=== PATIENT | female | born 1995 | race Caucasian/White ===

== ENCOUNTER → 2023-04-09 | Outpatient (CLI) | payer OTHER ==
[2023-04-09 10:16] LABS: BASOPHILS ABSOLUTE AUTO 0.02 K/mm3 (0.00-0.23); BASOPHILS PERCENT AUTO 0 % (0-2); EOSINOPHILS ABSOLUTE AUTO 0.06 K/mm3 (0.00-0.68); EOSINOPHILS PERCENT AUTO 1 % (0-6); Hematocrit 42.9 % (33.0-51.0); Hemoglobin 14.5 g/dL (11.5-16.0); IMMATURE GRAN ABSOLUTE AUTO 0.01 K/mm3 (0.00-0.10); IMMATURE GRAN PERCENT AUTO 0 % (0-1); LYMPHOCYTES ABSOLUTE AUTO 2.02 K/mm3 (0.84-5.20); LYMPHOCYTES PERCENT AUTO 43 % (21-46); MONOCYTES ABSOLUTE AUTO 0.32 K/mm3 (0.16-1.47); MONOCYTES PERCENT AUTO 7 % (4-13); Mean Corpuscular HGB 30.6 pg (26.0-34.0); Mean Corpuscular HGB Conc 33.8 g/dL (31.5-36.5); Mean Corpuscular Volume 91 fL (80-100); Mean Platelet Volume 9.7 fL (9.1-12.4); NEUTROPHILS PERCENT AUTO 49 % (41-73); Platelet Count 340 K/mm3 (150-400); RDW Coefficient Variation 11.9 % (11.7-14.2); RDW Standard Deviation 39.5 fL (35.1-46.3); Red Blood Cell Count 4.74 M/mm3 (3.80-5.20); White Blood Cell Count 4.73 K/mm3 (4.00-11.30)
[2023-04-09 10:27] LABS: Albumin, Blood 4.2 g/dL (3.4-5.0); Albumin/Globulin Ratio 1.1 (0.8-1.8); Bilirubin, Total 0.4 mg/dL (0.1-1.0); Bun/Creatinine Ratio 18.7 (12.0-20.0); Calcium, Blood 9.2 mg/dL (8.5-10.1); Creatinine, Blood 0.75 mg/dL (0.40-1.00); Globulin, Blood 3.8 g/dL (2.2-4.0); Potassium, Blood 3.8 mmol/L (3.5-5.5)
== END ==
LOC: LAB 10:13 → LAB SHORT 10:13
PROVIDERS: Family Medicine
DX: R42 Dizziness and giddiness (principal)
CPT/HCPCS: 80053; 85025

== ENCOUNTER → 2023-04-25 | Outpatient (CLI) | payer OTHER | END | disposition home or self-care (01) | LOC: LAB SHORT 17:06 | DX: Z32.01 Encounter for pregnancy test, result positive (principal) | CPT/HCPCS: 84702 ==

== ENCOUNTER → 2023-06-19 | Outpatient (CLI) | payer OTHER ==
[~2023-06-19] MED LIST: ONDA4ODT MM; PRENATAL 19 TA1 EAC3 PO
== END | disposition home or self-care (01) ==
LOC: LAB SHORT 17:20 → LAB 17:20
DX: L08.9 Local infection of the skin and subcutaneous tissue, unspecified (principal)
CPT/HCPCS: 87070; 87077; 87147; 87186; 87205

== ENCOUNTER → 2023-10-12 | Outpatient (CLI) | payer OTHER ==
[2023-10-18 08:14] LABS: OVA AND PARASITE,FECAL INTERP Negative (Negative)
== END | disposition home or self-care (01) ==
LOC: LAB SHORT 12:19 → LAB 12:19
PROVIDERS: Registered Nurse Community Health
DX: R19.7 Diarrhea, unspecified (principal)
CPT/HCPCS: 87177; 87209

== ENCOUNTER → 2023-10-23 | Outpatient (CLI) | payer OTHER | END | disposition home or self-care (01) | LOC: LAB SHORT 11:50 → LAB 11:50 | DX: Z09 Encounter for follow-up examination after completed treatment for conditions other than malignant neoplasm (principal); Z86.14 Personal history of Methicillin resistant Staphylococcus aureus infection | CPT/HCPCS: 87081 ==

== ENCOUNTER → 2023-12-05 | Outpatient (CLI) | payer OTHER | LOC: LAB SHORT 12:56 → LAB 12:56 | DX: Z34.93 Encounter for supervision of normal pregnancy, unspecified, third trimester (principal) | CPT/HCPCS: 87081; 87150 ==

== ENCOUNTER → 2023-12-13 | Outpatient (CLI) | payer OTHER | LOC: LAB 13:47 → LAB SHORT 13:47 | PROVIDERS: Registered Nurse Community Health | DX: O24.419 Gestational diabetes mellitus in pregnancy, unspecified control (principal) | CPT/HCPCS: 81050; 84156 ==

== ENCOUNTER 2023-12-19 00:52 | Inpatient (IN) | payer OTHER ==
[~2023-12-19] VITALS: Ht 175.3 cm; Wt 98.6 kg
[2023-12-19] VITALS (20 sets, daily range): BP systolic 94–140; BP diastolic 52–88
[2023-12-19] MEDS ORDERED: FentaNYL Citrate 50 MCG/ML 2 ML Injection IV PRN (02:05)
[2023-12-19] MEDS ORDERED: Lactated Ringer's 1,000 ML IV ONE ×2 (02:05→19:15)
[2023-12-19] MEDS ORDERED: Ondansetron HCl 2 MG / ML 2ML Vial ONE ×2 (02:29→10:18)
[2023-12-19] MEDS ORDERED: Ondansetron HCl 2 MG / ML 2ML Vial IV PRN ×2 (02:30→19:15)
[2023-12-19] MEDS ORDERED: Promethazine HCl 25 MG Tab PO ONE ×2 (04:35→12:25)
[2023-12-19] MEDS ORDERED: Morphine Sulfate 10 MG/ML 1MLSYR IM ONE ×2 (04:35→12:25)
[2023-12-19] MEDS ORDERED: METO5A PO (04:54)
[2023-12-19] MEDS ORDERED: METF500C PO (04:55)
[2023-12-19] MEDS ORDERED: Ondansetron HCl 2 MG / ML 2ML Vial IV ONE (07:15)
[2023-12-19] MEDS ORDERED: CefTRIAXone Sodium 2,000 MG in NS 100 ML IV ONE (09:55)
[2023-12-19 09:59] LABS: Source, Urine Voided
[2023-12-19 10:04] LABS: Appearance, Urine Clear (Clear); Bilirubin, Urine Neg (Neg); Blood, Urine 1+ (Neg); Glucose Qualitative, Urine 1+ (Neg); Ketones, Urine 4+ (Neg); Leukocyte Esterase, Urine 2+ (Neg); Nitrite, Urine Neg (Neg); Protein, Urine Neg (Neg); Specific Gravity, Urine 1.015 (1.003-1.022); Urobilinogen, Urine NORM (Normal)
[2023-12-19 11:43] LABS: Color, Urine Yellow (P-Yellow)
[2023-12-19 11:44] LABS: Bacteria Few /hpf; Red Blood Cells, Urine 0-2 /hpf (0-2); Squamous Epithelial Cells Few /hpf (Few)
[2023-12-19] MEDS ORDERED: Pantoprazole Sodium 40 MG Injection IV ONE (12:15)
[2023-12-19] MEDS ORDERED: NIFEdipine 10 MG Cap PO ONE (12:25)
[2023-12-19 13:28] LABS: BASOPHILS ABSOLUTE AUTO 0.02 K/mm3 (0.00-0.23); BASOPHILS PERCENT AUTO 0 % (0-2); EOSINOPHILS ABSOLUTE AUTO 0.01 K/mm3 (0.00-0.68); EOSINOPHILS PERCENT AUTO 0 % (0-6); Hemoglobin 12.7 g/dL (11.5-16.0); IMMATURE GRAN ABSOLUTE AUTO 0.05 K/mm3 (0.00-0.10); IMMATURE GRAN PERCENT AUTO 0 % (0-1); LYMPHOCYTES ABSOLUTE AUTO 1.37 K/mm3 (0.84-5.20); LYMPHOCYTES PERCENT AUTO 10 % (21-46); MONOCYTES ABSOLUTE AUTO 0.74 K/mm3 (0.16-1.47); MONOCYTES PERCENT AUTO 5 % (4-13); Mean Corpuscular HGB Conc 34.3 g/dL (31.5-36.5); Mean Corpuscular Volume 90 fL (80-100); Mean Platelet Volume 10.6 fL (9.1-12.4); NEUTROPHILS ABSOLUTE AUTO 12.25 K/mm3 (1.96-9.15); NEUTROPHILS PERCENT AUTO 85 % (41-73); Platelet Count 307 K/mm3 (150-400); RDW Coefficient Variation 14.5 % (11.7-14.2); RDW Standard Deviation 48.2 fL (35.1-46.3); White Blood Cell Count 14.44 K/mm3 (4.00-11.30)
[2023-12-19 13:45] LABS: Albumin, Blood 2.9 g/dL (3.4-5.0); Albumin/Globulin Ratio 0.7 (0.8-1.8); Bilirubin, Total 0.4 mg/dL (0.1-1.0); Bun/Creatinine Ratio 12.5 (12.0-20.0); Creatinine, Blood 0.4 mg/dL (0.40-1.00); Globulin, Blood 4.1 g/dL (2.2-4.0); Potassium, Blood 3.8 mmol/L (3.5-5.5)
[2023-12-19] MEDS ORDERED: Methylergonovine Maleate 0.2MG / ML 1ML Amp IM PRN (19:15)
[2023-12-19] MEDS ORDERED: Misoprostol 200 MCG Tab PR PRN (19:15)
[2023-12-19] MEDS ORDERED: Calcium Carbonate 500 MG Tab Chew PO PRN (19:15)
[2023-12-19] MEDS ORDERED: ePHEDrine Sulfate 50 MG/ML 1ML Injection XX PRN (19:15)
[2023-12-19] MEDS ORDERED: OXYTOCIN/RINGER'S LACTATE 500 ML IV PRN (19:15)
[2023-12-19] MEDS ORDERED: Oxytocin 10 Unit / ML Vial IM PRN (19:15)
[2023-12-19] MEDS ORDERED: Carboprost Tromethamine 250 MCG/ML 1ML Amp IM PRN (19:15)
[2023-12-19] MEDS ORDERED: Acetaminophen 500 MG Tab PO PRN (19:15)
[2023-12-19] MEDS ORDERED: Misoprostol 200 MCG Tab BC PRN (19:15)
[2023-12-19] MEDS ORDERED: Lactated Ringer's 1,000 ML IV SCH (19:15)
[2023-12-19] MEDS ORDERED: Lactated Ringer's 1,000 ML IV PRN ×2 (19:15)
[2023-12-19] MEDS ORDERED: FentaNYL 2mcg/ml-Bup 0.1% Epd 250 ML EPI PRN (19:15)
[2023-12-19] MEDS ORDERED: Tranexamic Acid 100 ML IV PRN (19:25)
[2023-12-20] VITALS (21 sets, daily range): BP systolic 110–164; BP diastolic 54–81
[2023-12-20] MEDS ORDERED: OXYTOCIN/RINGER'S LACTATE 500 ML IV SCH (05:35)
[2023-12-20] MEDS ORDERED: Pantoprazole Sodium 40 MG Injection IV SCH (08:40)
[2023-12-20] MEDS ORDERED: D5W-LR 1,000 ML IV SCH (09:00)
[2023-12-20] MEDS ORDERED: Witch Hazel/Glycerin PADS TOP PRN (17:15)
[2023-12-20] MEDS ORDERED: FLU VACC TS2024-25(6MOS UP)/PF 45 MCG/0.5 ML SYRINGE IM PRN (17:15)
[2023-12-20] MEDS ORDERED: Ketorolac Tromethamine 30mg Vial IV PRN (17:15)
[2023-12-20] MEDS ORDERED: Ibuprofen 400 MG Tab PO PRN (17:15)
[2023-12-20] MEDS ORDERED: Lactated Ringer's 1,000 ML IV SCH (17:15)
[2023-12-20] MEDS ORDERED: Benzocaine Topical Anesthetic Spray 60GM TOP PRN (17:20)
[2023-12-20] MEDS ORDERED: Docusate Sodium 100 MG Cap PO PRN (17:20)
[2023-12-20] MEDS ORDERED: Acetaminophen 325 MG TABLET PO PRN (17:20)
[2023-12-20] MEDS ORDERED: Lanolin Cream TOP PRN (17:20)
[2023-12-21] VITALS: BP 120/62
[2023-12-21 03:56] VITALS: BP 115/62
[2023-12-21 05:46] LABS: BASOPHILS ABSOLUTE AUTO 0.02 K/mm3 (0.00-0.23); BASOPHILS PERCENT AUTO 0 % (0-2); EOSINOPHILS ABSOLUTE AUTO 0.02 K/mm3 (0.00-0.68); EOSINOPHILS PERCENT AUTO 0 % (0-6); Hematocrit 32.5 % (33.0-51.0); Hemoglobin 10.9 g/dL (11.5-16.0); IMMATURE GRAN ABSOLUTE AUTO 0.05 K/mm3 (0.00-0.10); IMMATURE GRAN PERCENT AUTO 1 % (0-1); LYMPHOCYTES ABSOLUTE AUTO 2.22 K/mm3 (0.84-5.20); LYMPHOCYTES PERCENT AUTO 20 % (21-46); MONOCYTES ABSOLUTE AUTO 0.94 K/mm3 (0.16-1.47); MONOCYTES PERCENT AUTO 9 % (4-13); Mean Corpuscular HGB 30.8 pg (26.0-34.0); Mean Corpuscular HGB Conc 33.5 g/dL (31.5-36.5); Mean Corpuscular Volume 92 fL (80-100); Mean Platelet Volume 10.4 fL (9.1-12.4); NEUTROPHILS ABSOLUTE AUTO 7.84 K/mm3 (1.96-9.15); NEUTROPHILS PERCENT AUTO 71 % (41-73); Platelet Count 284 K/mm3 (150-400); RDW Coefficient Variation 14.7 % (11.7-14.2); RDW Standard Deviation 49.8 fL (35.1-46.3); Red Blood Cell Count 3.54 M/mm3 (3.80-5.20); White Blood Cell Count 11.09 K/mm3 (4.00-11.30)
[2023-12-21] MEDS ORDERED: Pantoprazole Sodium 40 MG Injection IV SCH (06:00)
[2023-12-21 08:03] VITALS: BP 127/82
[2023-12-21] MEDS ORDERED: Benzocaine/Benzethon Topical Anesthetic Spray 78GM TOP PRN (08:25)
[2023-12-21] MEDS ORDERED: Magnesium Citrate 300 ML BTL PO ONE (08:25)
[2023-12-21] MEDS ORDERED: Prenatal Vit/FE Fumarate/FA 1 Tab PO SCH (09:00)
[2023-12-21 13:36] VITALS: BP 136/74
[2023-12-21 17:09] VITALS: BP 120/69
[2023-12-21 19:13] VITALS: BP 138/79
--- NOTE | 2023-12-21 19:15 | NUR ---
Printed d/c instructions and teaching reviewed with patient and . Questions answered to their satisfaction. No acute changes t/o shift. Report to Peterson Mcgovern RN.
[2023-12-21] MEDS ORDERED: OxyCODONE HCL 5 MG TAB PO PRN (21:50)
[2023-12-22 02:08] VITALS: BP 141/81
[2023-12-22 05:34] VITALS: BP 131/71
[2023-12-22 08:08] VITALS: BP 150/93
[2023-12-22 08:11] VITALS: BP 139/83
[2023-12-22 12:24] VITALS: BP 145/83
--- NOTE | 2023-12-22 12:45 | NUR ---
DISCHARGE INSTRUCTIONS, WRITTEN AND VERBAL, GIVEN TO PT AND , KATY. ANSWERED ALL QUESTIONS AND CONCERNS. FOLLOW UP APPOINTMENT SCHEDULED. ALL PERSONAL BELONGINGS RETURNED. PT IS DISCHARGED HOME, DRIVEN BY Nicolasa BURNS.
--- NOTE | 2023-12-22 12:56 | NUR ---
EPDS OF 11. JEAN CLAUDE FROM [facility] CALLED AND REFERRAL REQUESTED.
== END 2023-12-22 13:45 | disposition home or self-care (01) | DRG 807 ==
LOC: OBS 00:52 → BC 00:59 → OBS 05:25 → BC 05:26 → OBS 19:16 → BC 19:16
PROVIDERS: Family Medicine; Student in an Organized Health Care Education/Training Program; ADMIT Registered Nurse Community Health
PROC: 10E0XZZ Delivery of Products of Conception, External Approach (ICD-10-PCS; principal; 2023-12-20)
PROC: 0KQM0ZZ Repair Perineum Muscle, Open Approach (ICD-10-PCS; 2023-12-20)
PROC: 10907ZC Drainage of Amniotic Fluid, Therapeutic from Products of Conception, Via Natural or Artificial Opening (ICD-10-PCS; 2023-12-20)
PROC: 3E0R3BZ Introduction of Anesthetic Agent into Spinal Canal, Percutaneous Approach (ICD-10-PCS; 2023-12-20)
PROC: 00HU33Z Insertion of Infusion Device into Spinal Canal, Percutaneous Approach (ICD-10-PCS; 2023-12-20)
DX: O21.0 Mild hyperemesis gravidarum (principal); Z37.0 Single live birth; Z3A.37 37 weeks gestation of pregnancy; O24.429 Gestational diabetes mellitus in childbirth, unspecified control; Z79.84 Long term (current) use of oral hypoglycemic drugs; Z79.899 Other long term (current) drug therapy; O70.1 Second degree perineal laceration during delivery
CPT/HCPCS: 36415; 36416; 51702; 59025; 80053; 81001; 81003; 82947; 85025; 86850; 86900; 86901; 87086; 99214; A9270; J0696; J2270; J2405; J2470; J2590; J3010; J7120; J7121

== ENCOUNTER 2024-01-25 12:38 | Emergency (ER) | payer OTHER ==
[~2024-01-25] VITALS: Ht 175.3 cm; Wt 81.7 kg
[~2024-01-25 12:38] MED LIST changes: +METF500C PO; +METO5A PO
[2024-01-25 13:27] LABS: BASOPHILS ABSOLUTE AUTO 0.03 K/mm3 (0.00-0.23); BASOPHILS PERCENT AUTO 1 % (0-2); EOSINOPHILS ABSOLUTE AUTO 0.03 K/mm3 (0.00-0.68); EOSINOPHILS PERCENT AUTO 1 % (0-6); Hematocrit 43.1 % (33.0-51.0); Hemoglobin 14.4 g/dL (11.5-16.0); IMMATURE GRAN ABSOLUTE AUTO 0.02 K/mm3 (0.00-0.10); IMMATURE GRAN PERCENT AUTO 0 % (0-1); LYMPHOCYTES ABSOLUTE AUTO 1.41 K/mm3 (0.84-5.20); LYMPHOCYTES PERCENT AUTO 22 % (21-46); MONOCYTES ABSOLUTE AUTO 0.44 K/mm3 (0.16-1.47); MONOCYTES PERCENT AUTO 7 % (4-13); Mean Corpuscular HGB Conc 33.4 g/dL (31.5-36.5); Mean Corpuscular Volume 90 fL (80-100); Mean Platelet Volume 9.9 fL (9.1-12.4); NEUTROPHILS ABSOLUTE AUTO 4.52 K/mm3 (1.96-9.15); NEUTROPHILS PERCENT AUTO 70 % (41-73); Platelet Count 306 K/mm3 (150-400); RDW Standard Deviation 43.2 fL (35.1-46.3); White Blood Cell Count 6.45 K/mm3 (4.00-11.30)
[2024-01-25] MEDS ORDERED: LORazepam 1 MG Tab PO ONE (13:30)
[2024-01-25] MEDS ORDERED: LORazepam 1 MG Tab SL ONE ×2 (13:35→13:55)
[2024-01-25] MEDS ORDERED: Ondansetron HCl 2 MG / ML 2ML Vial IV ONE (14:20)
[2024-01-25 14:59] LABS: Albumin, Blood 3.9 g/dL (3.4-5.0); Albumin/Globulin Ratio 1.1 (0.8-1.8); Bilirubin, Total 0.4 mg/dL (0.1-1.0); Bun/Creatinine Ratio 21.5 (12.0-20.0); Calcium, Blood 8.7 mg/dL (8.5-10.1); Creatinine, Blood 0.7 mg/dL (0.40-1.00); Globulin, Blood 3.5 g/dL (2.2-4.0); Potassium, Blood 3.9 mmol/L (3.5-5.5); Total Protein, Blood 7.4 g/dL (6.4-8.2)
[2024-01-25] MEDS ORDERED: NS 1,000 ML IV SCH (15:05)
[2024-01-25] MEDS ORDERED: LORazepam 2 MG/ML 1ML Injection IV ONE (15:50)
[2024-01-25] MEDS ORDERED: ONDA4ODT MM (17:40)
[2024-01-25] MEDS ORDERED: Ativan1 MG PO (17:40)
[2024-01-25] MEDS ORDERED: HYDHCL25 PO (17:40)
[2024-01-25 17:45] VITALS: BP 128/82
== END 2024-01-25 20:29 | disposition home or self-care (01) ==
LOC: ER 12:38
PROVIDERS: Emergency Medicine
DX: F41.9 Anxiety disorder, unspecified (principal); E86.0 Dehydration
CPT/HCPCS: 80053; 85025; 93005; 93010; 96361; 96374; 96375; 99284-25; A9270; J2060; J2405; J7030

== ENCOUNTER 2024-04-04 09:25 | Emergency (ER) | payer BC ==
[~2024-04-04] VITALS: Ht 172.7 cm; Wt 81.7 kg
[~2024-04-04 09:25] MED LIST changes: +Ativan1 MG PO; +HYDHCL25 PO
[2024-04-04 09:51] VITALS: BP 150/95
[2024-04-04] MEDS ORDERED: Ketorolac Tromethamine 15mg Vial IV ONE ×2 (09:55→12:30)
[2024-04-04 10:15] LABS: BASOPHILS ABSOLUTE AUTO 0.02 K/mm3 (0.00-0.23); BASOPHILS PERCENT AUTO 0 % (0-2); EOSINOPHILS ABSOLUTE AUTO 0.03 K/mm3 (0.00-0.68); EOSINOPHILS PERCENT AUTO 0 % (0-6); Hematocrit 37.6 % (33.0-51.0); Hemoglobin 12.7 g/dL (11.5-16.0); IMMATURE GRAN ABSOLUTE AUTO 0.03 K/mm3 (0.00-0.10); IMMATURE GRAN PERCENT AUTO 0 % (0-1); LYMPHOCYTES ABSOLUTE AUTO 1.75 K/mm3 (0.84-5.20); LYMPHOCYTES PERCENT AUTO 16 % (21-46); MONOCYTES ABSOLUTE AUTO 1.16 K/mm3 (0.16-1.47); MONOCYTES PERCENT AUTO 10 % (4-13); Mean Corpuscular HGB 30.6 pg (26.0-34.0); Mean Corpuscular HGB Conc 33.8 g/dL (31.5-36.5); Mean Corpuscular Volume 91 fL (80-100); Mean Platelet Volume 9.7 fL (9.1-12.4); NEUTROPHILS ABSOLUTE AUTO 8.21 K/mm3 (1.96-9.15); NEUTROPHILS PERCENT AUTO 73 % (41-73); Platelet Count 283 K/mm3 (150-400); RDW Coefficient Variation 13.9 % (11.7-14.2); RDW Standard Deviation 46.4 fL (35.1-46.3); Red Blood Cell Count 4.15 M/mm3 (3.80-5.20)
[2024-04-04 10:52] LABS: Albumin, Blood 3.8 g/dL (3.4-5.0); Albumin/Globulin Ratio 1.1 (0.8-1.8); Bilirubin, Total 0.8 mg/dL (0.1-1.0); Bun/Creatinine Ratio 23.1 (12.0-20.0); Calcium, Blood 8.9 mg/dL (8.5-10.1); Creatinine, Blood 0.56 mg/dL (0.40-1.00); Globulin, Blood 3.6 g/dL (2.2-4.0); Potassium, Blood 3.7 mmol/L (3.5-5.5); Total Protein, Blood 7.4 g/dL (6.4-8.2)
[2024-04-04] MEDS ORDERED: Ampicillin Sod/Sulbactam Sod 3 GM in NS 100 ML IV ONE (11:00)
[2024-04-04] MEDS ORDERED: AMOCLA875 PO (12:29)
[2024-04-04] MEDS ORDERED: Bactrim Ds Tab1 EACH PO (12:29)
[2024-04-04] MEDS ORDERED: Trimethoprim/Sulfamethoxazole DS Tab PO ONE (12:30)
== END 2024-04-04 12:50 | disposition home or self-care (01) ==
LOC: ER 09:25
PROVIDERS: Emergency Medicine
DX: L03.211 Cellulitis of face (principal); Z86.14 Personal history of Methicillin resistant Staphylococcus aureus infection; Z79.899 Other long term (current) drug therapy
CPT/HCPCS: 70487; 80053; 84703; 85025; A9270; J0295; J1885; Q9967

== ENCOUNTER 2024-04-06 08:15 | Inpatient (IN) | payer BC ==
[~2024-04-06] VITALS: Ht 172.7 cm; Wt 87.9 kg
[~2024-04-06 08:15] MED LIST changes: +AMOCLA875 PO; +Bactrim Ds Tab1 EACH PO
[2024-04-06] MEDS ORDERED: NS 1,000 ML IV SCH (09:05)
[2024-04-06] MEDS ORDERED: Ampicillin Sod/Sulbactam Sod 3 GM in NS 100 ML IV ONE (09:05)
[2024-04-06] MEDS ORDERED: Vancomycin HCL 2,000 MG in NS 500 ML IV ONE (09:10)
[2024-04-06 09:33] LABS: BASOPHILS ABSOLUTE AUTO 0.04 K/mm3 (0.00-0.23); BASOPHILS PERCENT AUTO 0 % (0-2); EOSINOPHILS ABSOLUTE AUTO 0.22 K/mm3 (0.00-0.68); EOSINOPHILS PERCENT AUTO 2 % (0-6); Hemoglobin 12.8 g/dL (11.5-16.0); IMMATURE GRAN ABSOLUTE AUTO 0.03 K/mm3 (0.00-0.10); IMMATURE GRAN PERCENT AUTO 0 % (0-1); LYMPHOCYTES ABSOLUTE AUTO 2.01 K/mm3 (0.84-5.20); LYMPHOCYTES PERCENT AUTO 21 % (21-46); MONOCYTES ABSOLUTE AUTO 0.65 K/mm3 (0.16-1.47); MONOCYTES PERCENT AUTO 7 % (4-13); Mean Corpuscular HGB 30.5 pg (26.0-34.0); Mean Corpuscular HGB Conc 32.8 g/dL (31.5-36.5); Mean Corpuscular Volume 93 fL (80-100); Mean Platelet Volume 9.6 fL (9.1-12.4); NEUTROPHILS ABSOLUTE AUTO 6.47 K/mm3 (1.96-9.15); NEUTROPHILS PERCENT AUTO 69 % (41-73); Platelet Count 304 K/mm3 (150-400); RDW Coefficient Variation 14.1 % (11.7-14.2); RDW Standard Deviation 48.8 fL (35.1-46.3); Red Blood Cell Count 4.19 M/mm3 (3.80-5.20); White Blood Cell Count 9.42 K/mm3 (4.00-11.30)
[2024-04-06 09:49] LABS: Bun/Creatinine Ratio 21.4 (12.0-20.0); Creatinine, Blood 0.65 mg/dL (0.40-1.00); Potassium, Blood 3.8 mmol/L (3.5-5.5)
[2024-04-06] MEDS ORDERED: Ketorolac Tromethamine 15mg Vial IV ONE (09:50)
[2024-04-06] MEDS ORDERED: PROZAC40 MG PO (10:02)
[2024-04-06] MEDS ORDERED: Buspirone HCl15 MG PO (10:02)
[2024-04-06] MEDS ORDERED: Ondansetron HCl 2 MG / ML 2ML Vial IV ONE (10:50)
[2024-04-06] MEDS ORDERED: FLU VACC TS2024-25(6MOS UP)/PF 45 MCG/0.5 ML SYRINGE IM SCH (12:35)
[2024-04-06] MEDS ORDERED: Ampicillin Sod/Sulbactam Sod 3 GM in NS 100 ML IV SCH (14:00)
[2024-04-06 16:18] VITALS: BP 136/83
[2024-04-06] MEDS ORDERED: Acetaminophen 325 MG TABLET PO PRN (17:35)
[2024-04-06] MEDS ORDERED: Docusate Sodium/Senna 1 Tab PO PRN (17:35)
[2024-04-06] MEDS ORDERED: Ondansetron 4 MG SoluTab MM PRN (17:40)
[2024-04-06] MEDS ORDERED: OxyCODONE HCL 5 MG TAB PO PRN (17:40)
[2024-04-06] MEDS ORDERED: Morphine Sulfate 4 MG/1 ML Injection IV PRN (17:40)
[2024-04-06] MEDS ORDERED: Ketorolac Tromethamine 30mg Vial IV PRN (17:45)
[2024-04-06] MEDS ORDERED: NS 250 ML IV PRN (17:55)
[2024-04-06] MEDS ORDERED: Vancomycin HCL 1,250 MG in NS 250 ML IV SCH (19:00)
[2024-04-06 19:24] VITALS: BP 126/76
--- NOTE | 2024-04-06 19:28 | NUR ---
SHIFT SUMMARY PT A&OX4. PT ADMITTED DUE TO FACIAL CELLULITIS. PT REPORTS PAIN ON R FACE THAN DISTENDS TO THROAT AND CHEST. PT RECEIVED A OXYCODONE, PT REPORTED TOLERATING IT. PT REPORTS IMPROVEMENT IN SWELLING SINCE LAST NIGHT, PT REPORTS SOME DIFFICULTY SWALLOWING DUE TO SWELLING BUT ABLE TO SWALLOW FOOD AND DRINK AND ON REG DIET. ADMIN ASSESSMENT COMPLETE. 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 PASSED ON IN REPORT PT WANTS VISIT FROM THERAPY DOG AND SERVICES ADVISOR. PT INDEPENDENT IN ROOM. PT CONT. OF URINE AND BM. PT ORIENTED TO ROOM AND UNIT AND CALL LIGHT. PT BED IN LOWEST POSITION. PT CALL LIGHT IN REACH. PT RECEIVING ANTIBIOTICS IV.
[2024-04-06] MEDS ORDERED: Melatonin 3 MG Tab PO PRN (20:25)
[2024-04-06] MEDS ORDERED: BusPIRone HCl 10 MG Tab PO SCH (21:00)
[2024-04-06] MEDS ORDERED: Lactobacil 2-S.Thermo-Bifido 1 1 Cap PO SCH (21:00)
[2024-04-07 03:28] VITALS: BP 128/84
--- NOTE | 2024-04-07 05:09 | NUR ---
GROUNDSKEEPING MAINTENANCE SUMMARY PT A/OX4. PLEASANT AND COOPERATIVE. PT HERE FOR FACIAL CELLULITIS. PT GIVEN IV ABOX PER APR. PT REPORTING FEELING OF IMPROVEMENT, IMPROVED PAIN AND SWELLING. MEDS PER MAR TO TX PAIN. PT QUESIONING PLAN OF CARE AND EXPRESSING ANXIETY; PT WANTING A REPEAT CT SCAN. REAFFIRMED 'S NOTATION OF POSSIBLE RECOMMENDED 2ND CT IN A FEW DAYS. CALL LIGHT ACCESSIBLE. PT ABLE TO MAKE NEEDS KNOWN. CARE WILL CONTINUE UNTIL REPORT GIVEN TO ONCOMING NURSE.
[2024-04-07 07:22] VITALS: BP 116/83
[2024-04-07] MEDS ORDERED: LORazepam 1 MG Tab PO PRN (08:00)
[2024-04-07] MEDS ORDERED: Enoxaparin 40 MG/0.4 ML SYR SC SCH (09:00)
[2024-04-07] MEDS ORDERED: FLUoxetine HCL 20 MG CAP PO SCH (09:00)
[2024-04-07] MEDS ORDERED: Ativan1 MG PO (10:41)
[2024-04-07] MEDS ORDERED: MELATONIN5 M1 PO (10:42)
[2024-04-07 11:13] LABS: Creatinine, Blood 0.49 mg/dL (0.40-1.00); Vancomycin, Trough 10.8 ug/mL (5.0-10.0)
--- NOTE | 2024-04-07 11:44 | NUR ---
Upon receiving a referral for spiritual care, I visited the patient. She tells me about her L[employer] ambrocio, her recent and her family. She talks about her cellulitis and that she has turned a corner for the better. 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 We discussed meditation and prayer and how she has will turn to this practice as a way to restore peace and balance. I encouraged self-care and provided anxiety containment and prayer. Patient responded well with a good result of reduced stress. I will continue to remain available to patient and family.
[2024-04-07] MEDS ORDERED: Vancomycin HCL 1,500 MG in NS 250 ML IV SCH (12:00)
[2024-04-07] MEDS ORDERED: QUEtiapine Fumarate 25 MG Tab PO PRN (15:05)
[2024-04-07 16:00] VITALS: BP 131/74
--- NOTE | 2024-04-07 18:15 | NUR ---
SHIFT SUMMARY NO ACUTE CHANGES, A/Ox4, INDEPENDENT IN ROOM. SWELLING ON R CHIN/JAW IMROVED SIGNIFICANTLY SINCE THIS RN TOOK OVER PT CARE THIS AM. PT CONTINUES ON IV ANTIBIOTICS WITH HOPE TO DISCHARGE TOMORROW ON ORAL ANTIBIOTICS. APPETITE GOOD. BM TODAY. TREATED FOR PAIN AND ANXIETY PER EMAR. SEROQUEL ADDED FOR SLEEP. PT CURRENTLY RESTING IN ROOM WITH AND SON AT BEDSIDE. CALL LIGHT WITHIN REACH - PT USES CALL LIGHT APPROPRIATELY.
[2024-04-07 19:44] VITALS: BP 138/99
[2024-04-08 02:54] VITALS: BP 120/81
--- NOTE | 2024-04-08 04:26 | NUR ---
SHIFT SUMMARY PT IS VERY PLEASANT YOUNG LADY, INDEPENDENT WITHIN THE HOSPITAL ROOM, COOPERATIVE WITH CARE, AND ABLE TO MAKE HER NEEDS KNOWN. PT REPORTS 7-9/10 CONTINUOUS PAIN IN RIGHT CHEECK, NECK, FOREHEAD, AND RIGHT SIDED DENTAL PAIN. DRESSING APPLIED TO RIGHT LOWER CHIN DURING EARLY AM HRS. PT TEARFUL AT HS D/T THREE MONTH OLD SON AT HOME CARED BY THE . PT WISHES TO DISCHARGE TODAY. PAIN CONTROLLED WITH PRN MORPHINE IV, OXYCODONE PO 5MG, TYLENOL AND TORADOL PRN. NO ACUTE EVENTS DURING THIS SHIFT. IV ABX INFUSED ORDERED: VANCO, AMPICILLIN Q6HRS ORDERED. BED AT THE LOWEST POSITION, CALL LIGHT WITHIN REACH.
[2024-04-08 07:34] VITALS: BP 124/80
[2024-04-08] MEDS ORDERED: OXYC5 PO (11:29)
[2024-04-08] MEDS ORDERED: DOXYCYCLINE HY100 M1 PO (11:30)
== END 2024-04-08 11:53 | disposition home or self-care (01) | DRG 872 ==
LOC: ER 08:15 → MEDS 12:29
PROVIDERS: Emergency Medicine; ADMIT Family Medicine
DX: A41.9 Sepsis, unspecified organism (principal); L03.211 Cellulitis of face; F41.9 Anxiety disorder, unspecified; G50.0 Trigeminal neuralgia; Z86.14 Personal history of Methicillin resistant Staphylococcus aureus infection; Z79.1 Long term (current) use of non-steroidal anti-inflammatories (NSAID); Z79.899 Other long term (current) drug therapy; Z79.891 Long term (current) use of opiate analgesic
CPT/HCPCS: 36415; 70487; 80048; 80053; 80202; 82565; 83605; 84703; 85025; 96365; 96366; 96367; 96375; 96376; 99284-25; A9270; G0378; J0295; J1885; J2270; J2405; J3370; J7030; J7040; J7050; Q9967

== ENCOUNTER 2024-09-28 10:58 | Emergency (ER) | payer OTHER ==
[~2024-09-28] VITALS: Ht 175.3 cm; Wt 81.7 kg
[~2024-09-28 10:58] MED LIST changes: +Buspirone HCl15 MG PO; +DOXYCYCLINE HY100 M1 PO; +MELATONIN5 M1 PO; +OXYC5 PO; +PROZAC40 MG PO
[2024-09-28 11:34] LABS: BASOPHILS ABSOLUTE AUTO 0.02 K/mm3 (0.00-0.23); BASOPHILS PERCENT AUTO 0 % (0-2); EOSINOPHILS ABSOLUTE AUTO 0.08 K/mm3 (0.00-0.68); EOSINOPHILS PERCENT AUTO 1 % (0-6); Hematocrit 39.6 % (33.0-51.0); Hemoglobin 13.0 g/dL (11.5-16.0); IMMATURE GRAN ABSOLUTE AUTO 0.03 K/mm3 (0.00-0.10); IMMATURE GRAN PERCENT AUTO 0 % (0-1); LYMPHOCYTES ABSOLUTE AUTO 1.81 K/mm3 (0.84-5.20); LYMPHOCYTES PERCENT AUTO 15 % (21-46); MONOCYTES ABSOLUTE AUTO 0.94 K/mm3 (0.16-1.47); MONOCYTES PERCENT AUTO 8 % (4-13); Mean Corpuscular HGB Conc 32.8 g/dL (31.5-36.5); Mean Corpuscular Volume 94 fL (80-100); NEUTROPHILS ABSOLUTE AUTO 9.18 K/mm3 (1.96-9.15); NEUTROPHILS PERCENT AUTO 76 % (41-73); NRBC ABSOLUTE 0.00 K/mm3 (0.00-0.02); NRBC Auto 0.0 /100 WBC (0.0-0.2); Platelet Count 321 K/mm3 (150-400); RDW Coefficient Variation 12.9 % (11.7-14.2); RDW Standard Deviation 44.3 fL (35.1-46.3)
[2024-09-28 11:59] LABS: Alanine Aminotransfer (ALT/SGP 23.0 U/L (12-78); Albumin, Blood 3.4 g/dL (3.4-5.0); Albumin/Globulin Ratio 0.8 (0.8-1.8); Anion Gap 8.0 mmol/L (3-11); Aspartate Aminotrans (AST/SGOT 12.0 U/L (12-37); Bilirubin, Total 0.4 mg/dL (0.1-1.0); Blood Urea Nitrogen 9.0 mg/dL (8-24); CO2, Blood 26.0 mmol/L (21-32); Calcium, Blood 8.2 mg/dL (8.5-10.1); Chloride, Blood 108.0 mmol/L (98-108); Creatinine, Blood 0.56 mg/dL (0.40-1.00); Globulin, Blood 4.0 g/dL (2.2-4.0); Glucose, Blood 98.0 mg/dL (70-99); Potassium, Blood 3.6 mmol/L (3.5-5.5); Sodium, Blood 138.0 mmol/L (136-145); Total Protein, Blood 7.4 g/dL (6.4-8.2)
[2024-09-28 13:02] VITALS: BP 143/95
[2024-09-28] MEDS ORDERED: CefTRIAXone Sodium 1,000 MG in NS 100 ML IV ONE (13:15)
[2024-09-28] MEDS ORDERED: NS 1,000 ML IV SCH (13:15)
[2024-09-28] MEDS ORDERED: CEPH500 PO (15:53)
[2024-09-28] MEDS ORDERED: BACTRIM DS TAB1 EAC1 PO (15:53)
== END 2024-09-28 16:20 | disposition home or self-care (01) ==
LOC: ER 10:58
PROVIDERS: Emergency Medicine
DX: L02.412 Cutaneous abscess of left axilla (principal); L03.112 Cellulitis of left axilla; Z79.2 Long term (current) use of antibiotics; Z79.899 Other long term (current) drug therapy; Z59.89 Other problems related to housing and economic circumstances
CPT/HCPCS: 80053; 83605; 85025; 96365; 99283-25; J0696; J7030

== ENCOUNTER 2024-10-22 04:25 | Day surgery (SDC) | payer OTHER ==
[~2024-10-22 04:25] MED LIST changes: +BACTRIM DS TAB1 EAC1 PO; +CEPH500 PO
== END 2024-10-22 23:00 | disposition home or self-care (01) ==
LOC: WOUND 04:25
DX: L08.9 Local infection of the skin and subcutaneous tissue, unspecified (principal); Z22.322 Carrier or suspected carrier of Methicillin resistant Staphylococcus aureus; Z87.891 Personal history of nicotine dependence
CPT/HCPCS: G0463

== ENCOUNTER → 2024-12-09 | Outpatient (CLI) | payer OTHER | LOC: LAB 11:54 → LAB SHORT 11:54 | DX: L08.0 Pyoderma (principal) | CPT/HCPCS: 87070; 87077; 87186; 87205 ==